=== PATIENT | female | born 1980 | race Caucasian/White ===

== ENCOUNTER 2020-08-14 07:41 | Outpatient (CLI) | payer OTHER, SELFPAY ==
--- NOTE | 2020-08-14 07:45 | MM_ITS ---
WS: [id number] Bilateral screening digital mammogram, 08/14/2020 Clinical Data: SCREENING Comparison: 01/05/2018. Findings: The breast parenchymal pattern shows fibroglandular tissue No spiculated masses or clustered calcific ations are seen. There are no secondary signs of carcinoma. There is a lobulated density which was pr esent on the prior exam is no longer present. Scattered normal breast tissue is seen in the anterior aspect of the right breast. There are lymph nodes in both axilla. MM/[id number] Impression: 1. Negative bilateral mammogram with removal of the lobulated mass noted 2 yea rs ago from the right breast. 2. Recommend annual screening mammograms. BIRADS: 1-Negative FOLLOW UP: 1 Year Follow-up The CAD inventory checker was used. 08/14/2020
== END 2020-08-14 07:42 | disposition home or self-care (01) ==
LOC: RADSHAW 07:44
PROVIDERS: Family Provider Family Medicine; PCP Family Medicine; Visit Provider Family Medicine
DX: Z12.31 Encounter for screening mammogram for malignant neoplasm of breast (principal)
CPT/HCPCS: 77067

== ENCOUNTER → 2020-09-01 09:00 | Outpatient (BNVA) | payer OTHER, SELFPAY | PROVIDERS: Family Provider Family Medicine; PCP Family Medicine; Visit Provider Specialist | DX: R20.0 Anesthesia of skin (principal); R20.2 Paresthesia of skin; G56.03 Carpal tunnel syndrome, bilateral upper limbs | CPT/HCPCS: 95910 ==

== ENCOUNTER 2021-10-13 08:24 | Outpatient (CLI) | payer OTHER, SELFPAY ==
--- NOTE | 2021-10-13 08:29 | MM_ITS ---
WS: [id number] BILATERAL SCREENING DIGITAL BREAST TOMOSYNTHESIS MAMMOGRAM WITH CAD HISTORY: SCREENING COMPARISON: 08/14/2020 and 01/05/2018 Bilateral CC and MLO views with tomosynthesis and synthetic mammography submitted. Computer aided det ection analyzed. Breast composition: The breasts are heterogeneously dense, which may obscure small masses. No suspici ous masses, microcalcifications or architectural distortion. Bilateral asymmetries. These asymmetries are stable. There is a partially obscured ovoid nodule in the RIGHT breast which has been previously described. No increase in size. This mass at 12:00 measures 3.4 x 1.9 cm. Multiple cysts were noted in the RIGHT breast at this location on an ultrasound from 01/05/2018. MM/[place] [id number] IMPRESSION: BI-RADS: 2-Benign FOLLOW UP: 1 Year Follow-up
== END 2021-10-13 08:25 | disposition home or self-care (01) ==
PROVIDERS: PCP Family Medicine; Visit Provider Family Medicine
DX: Z12.31 Encounter for screening mammogram for malignant neoplasm of breast (principal)
CPT/HCPCS: 77063; 77067

== ENCOUNTER 2023-02-11 11:41 | Outpatient (CLI) | payer OTHER, SELFPAY ==
--- NOTE | 2023-02-11 11:50 | MM_ITS ---
WS: [id number] VIEWS: MLO and CC views both breasts. 3D digital tomosynthesis is also included in this exam. Comparison made with prior exam of 01/05/2018, 08/14/2020, 10/13/2022.. Findings: There are stable appearing scattered parenchymal densities in both breasts with benign-appearing calc ifications. No significant interval change. The breasts are heterogeneously dense which may obscure s mall masses. Impression: MM/[place] [id number] BI-RADS: 2-Benign finding. FOLLOW-UP: 1 Year Follow-up This mammogram was also analyzed by the Computer Aided Detection System R2 Imag e Dipper Machine Operator.
== END 2023-02-11 11:42 | disposition home or self-care (01) ==
PROVIDERS: PCP Family Medicine; Visit Provider Family Medicine
DX: Z12.31 Encounter for screening mammogram for malignant neoplasm of breast (principal)
CPT/HCPCS: 77063; 77067

== ENCOUNTER 2025-01-17 08:56 | Outpatient (CLI) | payer BC, SELFPAY ==
--- NOTE | 2025-01-17 11:20 | MM_ITS ---
WS: [id number] BILATERAL SCREENING DIGITAL TOMOSYNTHESIS MAMMOGRAM WITH CAD HISTORY: SCREENING COMPARISON: 10/13/2021, 02/11/2023, 08/14/2020 Bilateral CC and MLO views with tomosynthesis and synthetic mammography submitted. Computer aided detection analyzed. Breast composition: The breasts are heterogeneously dense, which may obscure small masses. No suspicious masses, microcalcifications or architectural distortion. Focal asymmetry which is partially obscured near the 11-12 o'clock axis of the RIGHT breast at a middle depth is reidentified. This mass has decreased in size since 2021 and 2022. Cysts have been described in this location previously. Benign calcifications in each breast. MM/MM scr tomosynthesis [id number] IMPRESSION: BI-RADS: 2 - Benign FOLLOW UP: 1 Year Follow-up
== END 2025-01-17 08:57 | disposition home or self-care (01) ==
LOC: MOBLMAM 08:59
PROVIDERS: PCP Electrodiagnostic Medicine; Visit Provider Electrodiagnostic Medicine
DX: Z12.31 Encounter for screening mammogram for malignant neoplasm of breast (principal); R92.333 Mammographic heterogeneous density, bilateral breasts; N64.89 Other specified disorders of breast; R92.1 Mammographic calcification found on diagnostic imaging of breast
CPT/HCPCS: 77063; 77067